=== PATIENT | female | born 1980 | race African-American/Black ===

== ENCOUNTER 2017-04-08 17:00 | Emergency (ER) | payer MEDICAID ==
[~2017-04-08] VITALS: Ht 170.2 cm; Wt 94.5 kg
[2017-04-08] MEDS ORDERED: IBUPROFEN 600 MG TABLET PO ONE (18:45)
[2017-04-08] MEDS ORDERED: GuaiFENesin [SUGAR-FREE] 200 MG/10 ML SOLUTION UDCUP PO ONE (18:45)
[2017-04-08] MEDS ORDERED: ACETAMINOPHEN 500 MG TABLET PO ONE (18:45)
[2017-04-08] MEDS ORDERED: ALBUTEROL SULFATE HFA 90 MCG/PUFF 8 GM INHALER IH ONE (18:45)
[2017-04-08 19:23] VITALS: BP 129/79
== END 2017-04-08 19:37 | disposition home or self-care (01) ==
LOC: EMS 17:01
DX: J45.909 Unspecified asthma, uncomplicated (principal); J06.9 Acute upper respiratory infection, unspecified
CPT/HCPCS: 94640; 99284; J3535